=== PATIENT | male | born 1985 | race Caucasian/White ===

== ENCOUNTER → 2018-12-18 | Outpatient (CLI) | payer BC ==
[~2018-12-18] MED LIST: PANT40TA65 PO
[2018-12-18 09:48] LABS: PLATELET COUNT, AUTOMATED 200 K/uL (150-450)
== END ==
LOC: LAB 09:25
PROVIDERS: ATTEND Internal Medicine
DX: K21.9 Gastro-esophageal reflux disease without esophagitis (principal); R10.9 Unspecified abdominal pain
CPT/HCPCS: 36415; 81001; 82040; 82150; 82247; 82310; 82374; 82435; 82565; 82947; 83690; 84075; 84132; 84155; 84295; 84443; 84450; 84460; 84520; 85025

== ENCOUNTER → 2018-12-27 | Outpatient (CLI) | payer BC ==
--- NOTE | 2018-12-27 09:03 | RADIOLOGY IMAGING REPORT ---
FACILITY: [facility] PATIENT NAME: Terry Orellana : 1985 MR: [id number] V: [id number] EXAM DATE: ORDERING PHYSICIAN: AZALIA ARREGUIN TECHNOLOGIST: Location: [facility] Patient: Terry Orellana : 1985 Visit/Account:[id number] Date of Sevice: 12/27/2018 EXAMINATION: Abdominal ultrasound complete HISTORY: Right upper quadrant postprandial pain COMPARISON: None. FINDINGS: Gallbladder: There multiple shadowing stones within the gallbladder.. There is a negative Otto sig n by technologist notation. No evidence of gallbladder wall thickening Liver: There is increased echogenicity throughout liver which can be seen with fatty infiltration or other infiltrative process Common duct: Normal measuring 1.8 mm. Pancreas: Negative. Spleen: Normal in size and echogenicity measuring 11.3 cm in length. Kidneys: There is a lobular contour to both kidneys, the right measures 12.2 cm in length, and the l eft 10 cm. No hydronephrosis. Upper abdominal aorta and IVC: Negative. Ascites: None. IMPRESSION: Cholelithiasis although no evidence of gallbladder wall thickening, biliary ductal dilatation or posi tive Otto sign Increased echogenicity throughout liver which can be seen with fatty infiltration or other infiltrati ve process Report Dictated By: Sonal Avilez MD at 12/27/2018 8:54 AM Report E-Signed By: Sonal Avilez MD at 12/27/2018 8:59 AM WSN:[email or web address]
== END ==
LOC: US 00:55
PROVIDERS: ATTEND Internal Medicine
DX: R10.9 Unspecified abdominal pain (principal); K21.9 Gastro-esophageal reflux disease without esophagitis
CPT/HCPCS: 76700